=== PATIENT | male | born 1985 | race Caucasian/White ===

== ENCOUNTER 2018-05-16 11:47 | Emergency (ER) | payer MEDICAID ==
[2018-05-16 12:00] VITALS: BP 100/73
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
== END 2018-05-16 12:43 ==
DX: S80.211A Abrasion, right knee, initial encounter (principal); S80.212A Abrasion, left knee, initial encounter; M25.511 Pain in right shoulder; Y04.8XXA Assault by other bodily force, initial encounter; F17.200 Nicotine dependence, unspecified, uncomplicated

== ENCOUNTER 2018-06-18 17:35 | Emergency (ER) | payer MEDICAID ==
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
[2018-06-18] MEDS ORDERED: OXYCODONE/APAP 5/325 TAB PO ONE (18:05)
[2018-06-18 19:09] VITALS: BP 129/82
== END 2018-06-18 19:16 | disposition home or self-care (01) ==
DX: S60.221A Contusion of right hand, initial encounter (principal); S83.91XA Sprain of unspecified site of right knee, initial encounter; Y03.0XXA Assault by being hit or run over by motor vehicle, initial encounter; W22.8XXA Striking against or struck by other objects, initial encounter; Y92.481 Parking lot as the place of occurrence of the external cause; Y93.89 Activity, other specified; Y99.0 Civilian activity done for income or pay; F17.210 Nicotine dependence, cigarettes, uncomplicated
CPT/HCPCS: L1830